=== PATIENT | male | born 1960 | race Caucasian/White ===

== ENCOUNTER 2019-03-27 02:23 | Emergency (ER) | payer OTHER ==
[~2019-03-27] VITALS: Ht 182.9 cm; Wt 83.9 kg
[2019-03-27] MEDS ORDERED: METPRE4DP PO (04:47)
[2019-03-27] MEDS ORDERED: DULO60 PO (05:36)
[2019-03-27] MEDS ORDERED: Robaxin750 MG PO (05:36)
[2019-03-27] MEDS ORDERED: TRAZ50 PO (05:37)
[2019-03-27] MEDS ORDERED: Vitamin B-12250 MCG PO (05:37)
[2019-03-27] MEDS ORDERED: Catapres0.2 MG PO (05:38)
== END 2019-03-27 05:05 | disposition home or self-care (01) ==
LOC: ER 02:23
DX: J45.901 Unspecified asthma with (acute) exacerbation (principal)
CPT/HCPCS: 71046; 94640; 99285-25; J7512

== ENCOUNTER 2019-06-09 22:31 | Emergency (ER) | payer OTHER ==
[~2019-06-09] VITALS: Ht 182.9 cm; Wt 80.7 kg
[~2019-06-09 22:31] MED LIST: Catapres0.2 MG PO; DULO60 PO; METPRE4DP PO; Robaxin750 MG PO; TRAZ50 PO; Vitamin B-12250 MCG PO
[2019-06-10] MEDS ORDERED: ONDA4ODT MM (11:30)
[2019-06-10] MEDS ORDERED: THERA1 EACH PO (11:46)
== END 2019-06-10 01:43 | disposition left against medical advice (07) ==
LOC: ER 22:31
DX: Z53.21 Procedure and treatment not carried out due to patient leaving prior to being seen by health care provider (principal)

== ENCOUNTER 2019-09-05 06:45 | Emergency (ER) | payer OTHER ==
[~2019-09-05] VITALS: Ht 182.9 cm; Wt 79.8 kg
[~2019-09-05 06:45] MED LIST changes: +ONDA4ODT MM; +THERA1 EACH PO
== END 2019-09-05 08:15 | disposition home or self-care (01) ==
LOC: ER 06:45
DX: T22.111A Burn of first degree of right forearm, initial encounter (principal); T31.0 Burns involving less than 10% of body surface; F17.200 Nicotine dependence, unspecified, uncomplicated; Z79.899 Other long term (current) drug therapy; X18.XXXA Contact with other hot metals, initial encounter
CPT/HCPCS: 16000; 99283-25